=== PATIENT | female | born 1955 | race Caucasian/White ===

== ENCOUNTER → 2018-09-27 11:55 | Outpatient (CLI) | payer OTHER, SELFPAY ==
--- NOTE | 2018-09-27 | DI.RAD.S_ITS ---
PROCEDURE: XR CHEST 2V INDICATIONS: MILD INTERMITTENT ASTHMA WITH ACUTE EXACERBATION TECHNIQUE: 2 views of the chest were acquired. COMPARISON: None. FINDINGS: Surgical changes and devices: None. Lungs and pleura: No focal consolidations. There is mild bilateral bronchial wall thickening. There is prominence of the pulmonary vasculature. No pleural effusions or pneumothorax. Mediastinum: Mediastinal contours are normal. Heart size is normal. Bones and chest wall: No suspicious bony abnormalities. Soft tissues appear unremarkable. IMPRESSION: Mild bilateral bronchial wall thickening, which can be seen with obstructive lung diseases such as asthma or viral respiratory tract infections. Dictated by: Franco Fabian M.D. on 09/27/2018 at 13:42 Approved by: Franco Fabian M.D. on 09/27/2018 at 13:46
== END ==
PROVIDERS: PCP Internal Medicine; Visit Provider Student in an Organized Health Care Education/Training Program
DX: J45.21 Mild intermittent asthma with (acute) exacerbation (principal)
CPT/HCPCS: 71046

== ENCOUNTER → 2020-05-26 06:50 | Outpatient (CLI) | payer OTHER, SELFPAY ==
[2020-05-26 08:35] LABS: Cholesterol 282 mg/dL (140-199); HDL Cholesterol 96 mg/dL (40-60); LDL Cholesterol Calculated 153 mg/dL (<100); Triglycerides 166 mg/dL (35-150)
== END ==
PROVIDERS: PCP Internal Medicine; Referring Provider Internal Medicine; Visit Provider Internal Medicine
DX: Z00.00 Encounter for general adult medical examination without abnormal findings (principal)
CPT/HCPCS: 36415; 80061

== ENCOUNTER → 2020-06-19 09:49 | Outpatient (CLI) | payer OTHER, SELFPAY ==
--- NOTE | 2020-06-19 | DI.MG.S_ITS ---
BILATERAL DIGITAL SCREENING MAMMOGRAM 3D/2D WITH CAD: 06/19/2020 CLINICAL: Routine screening. Comparison is made to exam dated: 02/10/2017 mammogram - outside location. The tissue of both breasts is predominantly fatty. Current study was also evaluated with a Computer Aided Detection (CAD) system. There are benign calcifications in both breasts. No significant masses, calcifications, or other findings are seen in either breast. There has been no significant interval change. IMPRESSION: BENIGN There is no mammographic evidence of malignancy. A 1 year screening mammogram is recommended. This exam was interpreted at Station ID: [id number]. NOTE: For mammograms, a report in lay terms will be sent to the patient. Approximately 15% of breast malignancies will not be visualized mammographically. In the management of a palpable breast mass, a negative mammogram must not discourage biopsy of a clinically suspicious lesion. Electronically Signed By: Julian Casarez acr/penrad:06/19/2020 10:57:58 letter sent: Normal Exam ACR BI-RADS Category 2: Benign Finding(s) 3342F
== END ==
PROVIDERS: PCP Internal Medicine; Referring Provider Internal Medicine; Visit Provider Internal Medicine
DX: Z12.31 Encounter for screening mammogram for malignant neoplasm of breast (principal); M85.852 Other specified disorders of bone density and structure, left thigh; Z78.0 Asymptomatic menopausal state; M15.0 Primary generalized (osteo)arthritis
CPT/HCPCS: 77063; 77067; 77080

== ENCOUNTER → 2020-10-02 07:50 | Outpatient (CLI) | payer OTHER, SELFPAY ==
[2020-10-02] MEDS: COVID-19 VACC, Ad26(JANSSEN)/PF 0.5 ML IM (07:56)
== END ==
PROVIDERS: PCP Internal Medicine; Visit Provider Internal Medicine
DX: Z23 Encounter for immunization (principal)
CPT/HCPCS: 0031A; 91303

== ENCOUNTER → 2022-01-28 13:45 | Outpatient (CLI) | payer OTHER, SELFPAY ==
--- NOTE | 2022-01-28 | DI.MG.S_ITS ---
BILATERAL DIGITAL SCREENING MAMMOGRAM 3D/2D WITH CAD: 01/28/2022 CLINICAL: Routine screening. Comparison is made to exams dated: 06/19/2020 mammogram - [facility] and 02/10/2017 mammogram - outside location. The tissue of both breasts is heterogeneously dense. This may lower the sensitivity of mammography. Current study was also evaluated with a Computer Aided Detection (CAD) system. There are benign calcifications in both breasts. No significant masses, calcifications, or other findings are seen in either breast. There has been no significant interval change. IMPRESSION: BENIGN There is no mammographic evidence of malignancy. A 1 year screening mammogram is recommended. Based on the Tyrer Cuzick model (a risk assessment model) the patient's lifetime risk is 12.9% and her 10 year risk is 6.1%. According to the ACR, ACS, and NCCN guidelines, an annual breast MRI exam along with mammogram is recommended if the patient's lifetime risk is 20% or greater. This exam was interpreted at Station ID: [id number]. NOTE: For mammograms, a report in lay terms will be sent to the patient. Approximately 15% of breast malignancies will not be visualized mammographically. In the management of a palpable breast mass, a negative mammogram must not discourage biopsy of a clinically suspicious lesion. Electronically Signed By: Bob casarez/amry:01/28/2022 17:33:10 letter sent: Normal Exam ACR BI-RADS Category 2: Benign Finding(s) 3342F
== END ==
PROVIDERS: Visit Provider Physician Assistant
DX: Z12.31 Encounter for screening mammogram for malignant neoplasm of breast (principal)
CPT/HCPCS: 77063; 77067

== ENCOUNTER → 2022-10-21 13:40 | Outpatient (CLI) | payer OTHER, SELFPAY ==
--- NOTE | 2022-10-21 | DI.RAD.S_ITS ---
PROCEDURE: XR KNEE RT 3V INDICATIONS: KNEE PAIN TECHNIQUE: 3 views of the knee were acquired. COMPARISON: None. FINDINGS: Bones: No fractures or dislocations. No suspicious bony lesions. Doubtful joint space narrowing without osteophytosis. Soft tissues: No joint effusion. No suspicious soft tissue calcifications. IMPRESSION: No acute bony abnormality. Dictated by: Vicente Carvajal M.D. on 10/21/2022 at 15:42 Approved by: Vicente Carvajal M.D. on 10/21/2022 at 15:44
== END ==
PROVIDERS: PCP Physician Assistant; Referring Provider Physician Assistant; Visit Provider Physician Assistant
DX: M25.561 Pain in right knee (principal)
CPT/HCPCS: 73562

== ENCOUNTER → 2025-05-01 11:04 | Outpatient (CLI) | payer MEDICARE, SELFPAY ==
--- NOTE | 2025-05-01 11:06 | DI.RAD.S_ITS ---
PROCEDURE: FL BARIUM SWALLOW
== END ==
LOC: RAD 11:06
PROVIDERS: PCP Physician Assistant; Referring Provider Family Medicine; Visit Provider Family Medicine
DX: T18.108A Unspecified foreign body in esophagus causing other injury, initial encounter (principal); K44.9 Diaphragmatic hernia without obstruction or gangrene; K21.9 Gastro-esophageal reflux disease without esophagitis
CPT/HCPCS: 74220

== ENCOUNTER → 2025-05-08 12:10 | Outpatient (CLI) | payer MEDICARE, SELFPAY ==
--- NOTE | 2025-05-08 12:26 | DI.RAD.S_ITS ---
PROCEDURE: XR DEXA AXIAL SKELETON
== END ==
LOC: MAMMO 12:10
PROVIDERS: PCP Physician Assistant; Referring Provider Physician Assistant; Visit Provider Physician Assistant
DX: M85.89 Other specified disorders of bone density and structure, multiple sites (principal); Z78.0 Asymptomatic menopausal state
CPT/HCPCS: 77080

== ENCOUNTER → 2025-05-09 11:39 | Outpatient (CLI) | payer MEDICARE, SELFPAY ==
--- NOTE | 2025-05-09 11:40 | DI.MG.S_ITS ---
MM screening mammo BI: 05/09/2025. BI-RADS: 1 CLINICAL: 69-year old female for bilateral screening mammogram. Tyrer-Cuzick lifetime risk of 9.5%. No personal or first-degree family history of breast cancer. PRIOR EXAMS 01/28/2022, 06/19/2020. MAMMOGRAPHY TECHNIQUE: 2D and 3D (tomosynthesis) digital mammographic views obtained, with additional images as needed for full coverage. Current study was also evaluated with a Computer Aided Detection (CAD) system. DENSITY C. The breasts are heterogeneously dense, which may obscure small masses. MAMMOGRAPHY FINDINGS Bilateral: No suspicious mass, asymmetry, microcalcification, or other abnormality seen. IMPRESSION: * No evidence of malignancy. RECOMMENDATIONS Bilateral * Annual screening mammography. OVERALL ASSESSMENT CATEGORY BI-RADS-1: Negative. The [employer] recommends annual screening mammography beginning at age 40 for women with average risk of breast cancer. ELECTRONICALLY SIGNED: Lori Holland M.D. on 05/10/2025 at 05:09:16 PM PT Interpreting Station ID: [id number]
== END ==
PROVIDERS: PCP Physician Assistant; Referring Provider Physician Assistant; Visit Provider Physician Assistant
DX: Z12.31 Encounter for screening mammogram for malignant neoplasm of breast (principal); R92.333 Mammographic heterogeneous density, bilateral breasts
CPT/HCPCS: 77063; 77067

== ENCOUNTER 2025-05-16 12:48 | Day surgery (SDC) | payer MEDICARE, SELFPAY ==
--- NOTE | 2025-05-16 | PATH_ITS ---
[facility] Accession Number: [id number] No. of containers..01 Tissue . 01 Material submitted: . gastrointestinal site - ANTRAL BIOPSY . 01 Diagnosis: A. STOMACH, ANTRUM, BIOPSY: Antral mucosa with mild reactive gastropathy and mild chronic inflammation. Negative for Helicobacter organisms on IHC stain. Negative for intestinal metaplasia, dysplasia, and malignancy. [facility] 05/29/2025 1430 Local . 01 Comment: Immunohistochemistry for Helicobacter organisms is performed on block A1 and is negative. - Technical Note: The immunohistochemical and/or special stains reported were performed with appropriate controls at [facility] ([facility] [address], [facility] [address]). This test was developed and performance characteristics validated by [facility] [place]. It has not been cleared or approved by the Food and Drug Administration. . 01 Electronically signed: . Alka Argueta DO, Pathologist NPI- [id number] . 01 Gross description: . Received is one formalin-filled container labeled with the patient's name and labeled antral. The specimen consists of two fragments of lord, soft tissue which range in size from less than 0.1 cm to 0.2 x 0.2 x 0.2 cm. All fragments are totally submitted in cassette A1. ([id number]) /TANO 05/22/2025 2114 Local . 01 Pathologist provided ICD-10: R10.13 . 01 CPT . 027924, T09211 Specimen Comment: A courtesy copy of this report has been sent to [facility] Pathology Performed at: [address] [place] [address], [place], [place] [id number] MD Everette Montes De Oca MD Phone: [phone]
--- NOTE | 2025-05-16 07:02 | PM.PREOP ---
Pre-operative Note Interval Note History & Physical reviewed/Exam performed by Physician: Yes Changes to H&P: No ASA Class (for procedural sedation): II
[2025-05-16 13:57] VITALS: BP 181/95; PULSE 75; RESP 15; TEMP 36.4; O2SAT 100
[2025-05-16] MEDS: LACTATED RINGERS 1,000 ML 42 ML IV (14:01)
--- NOTE | 2025-05-16 15:02 | PM.OP.EGD ---
Operative Date/Time/Diagnoses Date of procedure: 05/16/25 Time of procedure: 15:22 Pre-op diagnosis: GERD, hiatal hernia Post-op diagnosis: other (Large hiatal hernia, mild antral gastritis) Procedure & Clinicians Study performed: EGD with biopsy Same procedure(s) as scheduled: Yes Indications: 69yo F, c/o GERD, hiatal hernia Surgeon: Randy Perez Anesthesia Type: MAC +/- Procedure Notes SCOAP/Timeout: Performed Procedure in detail: EGD Informed consent was obtained. The procedure, its risks, benefits, and alternatives were discussed. Patient understood and agreed to proceed. The patient was placed in the left lateral decubitus position with head elevated. Sedation given per anesthesia. The video endoscope was inserted into the oropharynx and guided under direct vision into the esophagus, stomach, and duodenum which were carefully examined. The scope was retroflexed to examine the hiatus and gastroesophageal junction. Antral biopsies were obtained for Helicobacter pylori. The patient tolerated the procedure very well. There were no apparent complications. Significant EGD findings: Z-line noted at: 35cm Large hiatal hernia, 8cm, no Carmelo's ulcer at diaphragmatic pinch, +stasis gastritis No esophagitis Mild antral gastritis, biopsied Duodenum normal No ulcer in esophagus, stomach or duodenum Findings: gastritis and hiatal hernia Specimen(s): other (biopsies) Estimated Blood Loss: 5 Complications: none Impression: Large hiatal hernia without esophagitis Stasis gastritis Antral gastritis Continue Protonix Can discuss surgical options if poor symptom control Post-procedure Plan for aftercare: PACU then home Follow up: as needed Disposition: PACU
[2025-05-16 15:18] VITALS: BP 157/77; PULSE 78; RESP 20; TEMP 36.2; O2SAT 92
[2025-05-16 15:20] VITALS: BP 154/85; PULSE 83; RESP 23; O2SAT 97
[2025-05-16 15:34] VITALS: BP 159/94; PULSE 76; RESP 22; O2SAT 97
== END 2025-05-16 16:00 | disposition home or self-care (01) ==
PROVIDERS: PCP Physician Assistant; Referring Provider Surgery; Visit Provider Surgery
PROC: 0DJ08ZZ Inspection of Upper Intestinal Tract, Via Natural or Artificial Opening Endoscopic (ICD-10-PCS; CPT 43239; principal; 2025-05-16 14:00)
DX: K21.9 Gastro-esophageal reflux disease without esophagitis (principal); K44.9 Diaphragmatic hernia without obstruction or gangrene; K29.50 Unspecified chronic gastritis without bleeding; K31.9 Disease of stomach and duodenum, unspecified
CPT/HCPCS: 43239; J2704; J7120